=== PATIENT | female | born 2000 | race Caucasian/White ===

== ENCOUNTER 2023-10-13 16:22 | Inpatient (IN) | payer BC, SELFPAY ==
[2023-10-13] VITALS (38 sets, daily range): BP systolic 93–150; BP diastolic 61–101; PULSE 81–112; RESP 16–36; TEMP 36.4–36.6; O2SAT 87–100; BMI 35.3
[2023-10-13] MEDS: LACTATED RINGERS 500 ML 999 ML IV (16:40)
[2023-10-13] MEDS: Lactated Ringers 1,000 ML 50 ML IV (16:40)
[2023-10-13 17:01] LABS: Absolute Neutrophil Count 14.8 X10^3/uL (2.0-7.7); Basophil# 0.06 X10^3/uL; Basophil% 0.4 % (0-1); Eosinophil# 0.01 X10^3/uL; Eosinophils% 0.1 % (0-5); Hematocrit 36.3 % (37-47); Mean Corp Hgb Conc 30.3 g/dL (32-36); Mean Corpuscular Hgb 23.6 pg (27.0-32.0); Mean Corpuscular Volume 77.9 fL (81-99); Monocyte# 0.93 X10^3/uL; Monocyte% 5.4 % (0-10); NRBC Flagged by Analyzer 0 % (0-5); Neutrophil # 14.78 X10^3/uL (2.7-7.7); Neutrophil % 86.4 % (47-70); Platelet Count 355 K/mm3 (150-450); RBC Distribution Width CV 18.7 % (11.6-14.6); RBC Distribution Width SD 51.6 fl (35.1-43.9); Red Blood Count 4.66 M/mm3 (4.2-5.4); White Blood Count 17.1 K/mm3 (4.4-11.0)
[2023-10-13] MEDS: fentaNYL-bupivacaine (epidural) 100 ML BAG EPIDURAL (17:45)
[2023-10-13] MEDS: Amnioinfusion- 0.9% NS 1,000 ML IV.SOLN. 1000 ML INTRA-UTER (18:37)
--- NOTE | 2023-10-13 18:41 | PCM.HP.OB ---
HPI - General General Date of Admission: 10/13/23 HPI Narrative GORDO LARIOS, is a 23 F who presents c/o contractions - was found to be making cervical change. Pt was /-2 with painful contractions. PFSH PFSH Medical History no medical history Home Medications ?Medication ?Instructions ?Recorded ?Last Taken ?Type escitalopram oxalate 10 mg tablet 10 mg PO DAILY depression/anxiety 10/13/23 10/12/23 22:30 History (Lexapro) [id number] 1 mg 2 tab PO DAILY vitamins 10/13/23 10/13/23 00:00 History tablet Allergy/AdvReac Type Severity Reaction Status Date / Time ketamine Allergy Severe loss of Verified 10/13/23 15:44 consciousness Family History no significant family his Surgical History no surgical history Social History Smoking Status: Current every day smoker History Elective abortions Hx Para 0 Spontaneous abortions Hx # Term Pregnancies Ectopic pregnancies Hx # Pregnancies Multiple births # of living children NST FHR Rate Baby A Baseline: 130s Variability:: Moderate Accelerations:: 15 x 15 Decelerations:: Variable NST Reactive:: Yes FHR Category:: Category II Uterine Activity:: 2-5 Vital Signs Vital Signs Vital Signs: 10/13/23 13:48 10/13/23 13:48 10/13/23 13:48 Temperature Temperature Source Temporal Pulse Rate Respiratory Rate 36 H Blood Pressure BP Systolic BP Diastolic Pulse Ox 97 10/13/23 13:48 10/13/23 15:45 10/13/23 15:45 Temperature 97.6 F L Temperature Source Pulse Rate 109 H Respiratory Rate Blood Pressure 132/91 H BP Systolic 132 BP Diastolic 91 Pulse Ox 10/13/23 17:16 10/13/23 17:16 10/13/23 17:20 Temperature Temperature Source Pulse Rate 94 91 Respiratory Rate Blood Pressure BP Systolic BP Diastolic Pulse Ox 98 10/13/23 17:20 10/13/23 17:21 10/13/23 17:21 Temperature Temperature Source Pulse Rate 94 Respiratory Rate Blood Pressure BP Systolic BP Diastolic Pulse Ox 87 98 10/13/23 17:26 10/13/23 17:26 10/13/23 17:27 Temperature Temperature Source Pulse Rate 83 Respiratory Rate Blood Pressure 141/97 H BP Systolic 141 BP Diastolic 97 Pulse Ox 87 10/13/23 17:27 10/13/23 17:32 10/13/23 17:32 Temperature Temperature Source Pulse Rate 90 96 Respiratory Rate Blood Pressure 147/101 H BP Systolic 147 BP Diastolic 101 Pulse Ox 10/13/23 17:32 10/13/23 17:38 10/13/23 17:38 Temperature Temperature Source Pulse Rate 88 Respiratory Rate 22 H Blood Pressure 150/89 H BP Systolic 150 BP Diastolic 89 Pulse Ox 10/13/23 17:38 10/13/23 17:41 10/13/23 17:42 Temperature Temperature Source Pulse Rate Respiratory Rate 20 H 22 H Blood Pressure 141/83 H BP Systolic 141 BP Diastolic 83 Pulse Ox 10/13/23 17:42 10/13/23 17:47 10/13/23 17:47 Temperature Temperature Source Pulse Rate 98 96 Respiratory Rate Blood Pressure 142/94 H BP Systolic 142 BP Diastolic 94 Pulse Ox 10/13/23 17:47 10/13/23 17:47 10/13/23 17:48 Temperature Temperature Source Pulse Rate 91 Respiratory Rate Blood Pressure 140/93 H BP Systolic 140 BP Diastolic 93 Pulse Ox 100 10/13/23 17:48 10/13/23 17:48 10/13/23 17:52 Temperature Temperature Source Pulse Rate 94 90 Respiratory Rate 18 Blood Pressure BP Systolic BP Diastolic Pulse Ox 10/13/23 17:52 10/13/23 17:55 10/13/23 17:55 Temperature Temperature Source Pulse Rate 86 Respiratory Rate Blood Pressure 136/90 H BP Systolic 136 BP Diastolic 90 Pulse Ox 98 10/13/23 17:55 10/13/23 17:57 10/13/23 17:57 Temperature Temperature Source Pulse Rate 81 Respiratory Rate 16 Blood Pressure BP Systolic BP Diastolic Pulse Ox 100 10/13/23 18:02 10/13/23 18:02 10/13/23 18:02 Temperature Temperature Source Pulse Rate 86 Respiratory Rate Blood Pressure 133/75 H BP Systolic 133 BP Diastolic 75 Pulse Ox 100 10/13/23 18:07 10/13/23 18:07 10/13/23 18:07 Temperature Temperature Source Pulse Rate 95 Respiratory Rate Blood Pressure 138/87 H BP Systolic 138 BP Diastolic 87 Pulse Ox 99 10/13/23 18:19 10/13/23 18:19 10/13/23 18:20 Temperature Temperature Source Pulse Rate 99 91 Respiratory Rate Blood Pressure BP Systolic BP Diastolic Pulse Ox 100 10/13/23 18:20 10/13/23 18:24 10/13/23 18:24 Temperature Temperature Source Pulse Rate 100 Respiratory Rate Blood Pressure BP Systolic BP Diastolic Pulse Ox 92 100 10/13/23 18:29 10/13/23 18:29 10/13/23 18:34 Temperature Temperature Source Pulse Rate 96 100 Respiratory Rate Blood Pressure BP Systolic BP Diastolic Pulse Ox 100 10/13/23 18:34 10/13/23 18:39 10/13/23 18:39 Temperature Temperature Source Pulse Rate 112 H Respiratory Rate Blood Pressure BP Systolic BP Diastolic Pulse Ox 100 99 Weight Weight: 93.4 kg Body Mass Index (BMI) 35.3 Physical Exam Narrative /-2 IFM and IUPC placed- AROM was performed but scant fluid noted. Const alert and oriented x3 General Appearance: cooperative HEENT normocephalic GI GI Narrative: Gravid, non tender to palpation. OB / External & Speculum: external exam normal Extremity normal to inspection Skin no rashes or lesions noted Neuro oriented x3 and CN's II-XII intact bilaterally Psych Appearance: grossly normal Labs Labs Labs: Blood Type O POSITIVE Antibody Screen NEGATIVE Hct 36.3 % (37-47) L Hgb 11.0 g/dL (12.0-15.0) L Syphilis Total Ab Pending Assessment & Plan (1) with care elsewhere: (2) Depression with anxiety: (3) 39 weeks gestation of : (4) Echogenic focus of heart of fetus affecting antepartum care of mother: (5) Anemia affecting : (6) Borderline personality disorder: (7) History of drug use: PLAN: Plan Admit to L&D [facility] FHR/TOCO Epidural if requested for pain Monitor VS Anticipate IFM/IUPC- will start Amnioinfusion for variable decelerations
[2023-10-13] MEDS: Cefazolin 2 GM in 0.9% Normal Saline (100mL Bag) 100 ML IV (19:03)
--- NOTE | 2023-10-13 19:11 | PLAC_PTH ---
PATIENT: GORDO LARIOS LOC: [facility] U#:[id number] AGE/SX: 23/ ROOM: WP007 RE10/13/[address]: Dr. Paige Fowler, MDDOB: 2000 BED: 1 DIS: 10/16/2023 SPEC #: [id number] RECD: 10/13/23 21:08 STATUS: SANDY AUDREY #: [id number] SANDY: 10/13/23 19:[address]: Paige Fowler DEPT: SURGICAL PATHOLOGY RECD BY: Loly Patrick ENTERED: 10/14/23 10:10 SP TYPE: PLACENTA OTHR DR: No Primary Care Phys Tissues: Placenta, NOS Procedures: Surgery Specimen Level V HEADER OPERATION: section PRE-OP DIAGNOSIS: RICARDO TISSUE SUBMITTED: Placenta MICROSCOPIC DIAGNOSIS Placenta: Placental disc - third trimester placenta (540 gm). - Focal acute vasculitis of subamniotic blood vessels. - Focal increased calcifications. Membranes - Moderate acute chorioamnionitis. Umbilical cord - three blood vessels and mild acute funisitis. SJ: 10/17/2023 MICROSCOPIC DESCRIPTION Slides are reviewed. GROSS DESCRIPTION SPECIMEN: PLACENTA / CLINICAL INFORMATION: A. Weight: 3.54 kg B. Gestational Age: 39 weeks C. Sex: Male PLACENTAL WEIGHT (POST FIXATION): 540 gm PLACENTAL DIMENSIONS: 19.0 x 14.0 x 3.0 cm PLACENTAL SHAPE: Usual ovoid PLACENTAL WEIGHT FOR GESTATIONAL AGE: Within 10-99th percentile MEMBRANES - Present A. Insertion: Marginal B. Site of rupture from edge: at edge of placental disc C. Color of membrane: Yin-velasquez D. Abnormalities: None UMBILICAL CORD - Present A. Color: Yin-velasquez B. Insertion: Eccentric C. Length: 42.0 cm D. Diameter: 1.3 cm E. Number of vessels: Three F. Abnormalities: None PLACENTAL DISC - Present A. Color of surface: Yin-velasquez B. surface abnormalities: None C. Maternal cotyledons: Intact with minimal tears D. Attached retro placental clot: No clot E. Cut surface: Dark red and spongy F. Lesions: None G. Separate clot: Blood clot measures 9.5 x 3.0 x 2.0cm. SECTIONS SUBMITTED: 6 cassettes 1. Umbilical cord , end 2. Umbilical cord, placental end 3. Membrane roll 4. Placental disc, and maternal surfaces 5. Placental disc, and maternal surfaces 6. Placental disc, and maternal surfaces AM/mr 10/15/2023 TC:2 CPT: 24590
[2023-10-13] MEDS: Azithromycin 500 MG in Dextrose 5%-Water (250mL Bag) 250 ML 250 MG IV (19:21)
--- NOTE | 2023-10-13 19:45 | OP.PCM_ITS ---
Details Operative Information Date of Procedure: 10/13/23 Pre-Operative Diagnosis: 39 weeks, non reassuring status, cat 2 FHR Post-Operative Diagnosis: same, live male Indications Narrative: Prior to my arrival on unit patient had some audible variable decelerations and Nursing was requesting Internal monitors. AROM performed- scant clear fluid. IFM and IUPC were placed. After this there were multiple prolonged FHR decelerations to 60s-70s with good recovery to baseline, moderate variability. Pt was placed in different position, prior to calling RICARDO fetus had prolonged deceleration that did not recover into the 60-70s bpm at time patient was in the Operating room FHR was 90s-100. Pt was counseled on Primary cs at she was 6cm at this time and agreed to proceed with delivery by C/S. Classification: Stat Procedure Type: low transverse product analyst #1: Guillermo Sanchez Type of Anesthesia: Epidural Antibiotic Given: Ancef 2 grams IV x1 (will continue Q8hr x 24 hrs after c/s ) and Zithromax 500 mg/5 mL X1 Drain: Nance to straight drain Estimated Blood Loss: 600 Fluids Replaced: 1300 Procedure Start Time: 19:09 Procedure Stop Time: 19:50 Time of Delivery: 19:11 Findings Description of Procedure: After informed consent was obtained the patient was taken the operating room. She was then placed in the supine position. She was prepped with Betadine splash and draped in usual sterile fashion. Anesthesia was found to be adequate. At this time a Pfannenstiel skin incision was made with a knife was carried down to the underlying layer of the fascia. The fascial incision was then extended laterally using traction. Rectus muscles were then in the midline bluntly and peritoneum was entered bluntly. Gentle opposing traction was placed. At this time the vesicouterine peritoneum was identified. Scalpel was used to make a uterine incision in a low transverse fashion. The uterus was then entered bluntly gentle opposing traction was placed to extend this incision. Clear fluid noted but there was also amnioinfusion prior to delivery for the decelrations. Infant's head was brought to the uterine incision was delivered atraumatically. umbilical cord was noted between infant and uterine wall but no cord entanglement was noted. was vigorous at delivery. Cord was clamped and cut was handed to the waiting nursery team. The Placenta was removed from the uterus. The uterus was then removed from the abdominal cavity. The uterus was cleared of all clots and debris using a lap. At this time the uterine incision was reapproximated using #1 Vicryl in a running locked fashion. Hemostasis was appreciated. Posterior cul-de-sac was then cleared of all clots and debris. Uterus was placed back in the abdominal cavity. Gutters were cleared of all clots and debris. Uterine incision was reevaluated and noted to be of excellent hemostasis. At this time the peritoneum was grasped with Kellys reapproximated using #2 Vicryl suture in a running fashion. Fascia was then reapproximated using #1 Vicryl in a running fashion. Subcu layer was irrigated with NS, reapproximated with #2 0 plain gut suture in an interrupted fashion. Subcu layer was closed using 4-0 vicryl in a subcu fashion. Dry sterile dressing was applied. Instrument lap needle count correct ?2. Anticipated normal postoperative course. Presentation: Positive for Vertex Amniotic Membrane Rupture Type: Artificial Amniotic Fluid Description: Clear (scant ) Placental Delivery Description: Manual Removal Placenta Disposition: [facility] Specimen(s) Sent to Pathology: placenta Cord Vessel Description: 3 Vessels Cord Entanglement: None Cord Gases: ABG and VBG Infant A Gender: Male (1 minute): 8 (5 minute): 9 Delayed Cord Clamping: No Complications Risks of Surgery Discussed w/Patient: Bleeding, Anesthesia Risks, Infection and Injury to surrounding structure(s) including bowel and bladder Complications: none
[2023-10-13] MEDS: Oxytocin 15 Units/NS 250ml 15 UNITS/250 ML IV.SOLN 83 UNITS IV (20:32)
[2023-10-13] MEDS: Ketorolac 30 MG/ML Syringe IV (20:48)
[2023-10-13 21:06] LABS: Pathology Specimen OB SEE PATHOLOGY REPORT
[2023-10-13 22:28] LABS: Syphilis Antibodies Non-reactive
[2023-10-13] MEDS: Acetaminophen 500 MG Tablet 1000 MG PO (23:52)
[2023-10-13] MEDS: Escitalopram Oxalate 10 MG Tablet PO (23:52)
[2023-10-13] MEDS: Lactated Ringers 1,000 ML 100 ML IV (23:53)
[2023-10-14] VITALS (7 sets, daily range): BP systolic 98–131; BP diastolic 47–80; PULSE 80–103; RESP 14–18; TEMP 36.4–36.9; O2SAT 92–99
[2023-10-14] MEDS: Ketorolac 30 MG/ML Syringe IV ×3 (02:57→14:56)
[2023-10-14] MEDS: Cefazolin 1 GM/50 ML BAG IV ×2 (02:59→10:49)
[2023-10-14 05:00] LABS: Hematocrit 26.2 % (37-47); Hemoglobin 7.9 g/dL (12.0-15.0); Mean Corp Hgb Conc 30.2 g/dL (32-36); Mean Corpuscular Volume 79.6 fL (81-99); Mean Platelet Vol. 11.5 fl (6.2-12.0); Platelet Count 244 K/mm3 (150-450); RBC Distribution Width CV 18.7 % (11.6-14.6); RBC Distribution Width SD 53.5 fl (35.1-43.9); Red Blood Count 3.29 M/mm3 (4.2-5.4); White Blood Count 13.9 K/mm3 (4.4-11.0)
[2023-10-14 05:02] LABS: Scan Indicated on CBC? Y/N NO
[2023-10-14] MEDS: Acetaminophen 500 MG Tablet 1000 MG PO ×3 (06:09→18:51)
[2023-10-14] MEDS: Enoxaparin 40 MG/0.4 ML Syringe SC (08:11)
[2023-10-14] MEDS: Senna/Docusate Sodium 1 Tablet PO (10:48)
--- NOTE | 2023-10-14 12:17 | PN.OBGYN_ITS ---
Subjective Subjective Denies complaints Objective Data Objective Data Vital Signs: Vital Signs Temp Pulse Resp BP Pulse Ox O2 Del Method 98.5 F 80 14 98/47 L 97 Room Air 10/14/23 08:30 10/14/23 08:30 10/14/23 08:30 10/14/23 08:30 10/14/23 08:30 10/14/23 08:30 Oxygen Delivery Method Room Air Weight: 205 lb 14.588 oz Body Mass Index (BMI) 35.3 Intake & Output: Intake and Output for Last 24 Hours 10/12/23 10/13/23 10/14/23 23:59 23:59 23:59 Intake Total 1169.17 / 1169.17 1350 / 1350 Output Total 800 / 800 200 / 200 Balance 369.17 / 369.17 1150 / 1150 Lab / Micro Data 10/14/23 04:50 Labs: Laboratory Results - last 24 hr 10/13/23 16:40: WBC 17.1 H, RBC 4.66, Hgb 11.0 L, Hct 36.3 L, MCV 77.9 L, MCH 23.6 L, MCHC 30.3 L, RDW Std Deviation 51.6 H, RDW Coeff of Linda 18.7 H, Plt Count 355, MPV 12.0, Immature Gran % (Auto) 0.700, Neut % (Auto) 86.4 H, Lymph % (Auto) 7.0 L, [place] % (Auto) 5.4, Eos % (Auto) 0.1, Baso % (Auto) 0.4, Absolute Neuts (auto) 14.8 H, Absolute Lymphs (auto) 1.20, Nucleated RBC % 0, Syphilis Total Ab Non-reactive, Blood Type O POSITIVE, Antibody Screen NEGATIVE 10/14/23 04:50: WBC 13.9 H, RBC 3.29 L, Hgb 7.9 L, Hct 26.2 L, MCV 79.6 L, MCH 24.0 L, MCHC 30.2 L, RDW Std Deviation 53.5 H, RDW Coeff of Linda 18.7 H, Plt Count 244, MPV 11.5 Physical Exam Const alert, oriented x3 and no apparent distress HEENT normocephalic GI soft to palpation, non-tender and non-distended GI Narrative: fundus firm, mid & below umbilicus Incision - bandage c/d/i Extremity normal to inspection and no calf tenderness Assessment & Plan (1) Anemia affecting : QUALIFIERS: Trimester: third trimester Qualified Code(s): O99.013 - Anemia complicating , third trimester COMMENT: POD#1 (2) Delivery by section: PLAN: Heme - HDS. CBC reviewed. Continue iron for anemia. ID - AF, no signs infection GI/ - no issues Routine care
[2023-10-14] MEDS: 0.9% Saline Lock 10 ML Syringe IV (14:57)
[2023-10-14] MEDS: Ibuprofen 600 MG Tablet PO (20:58)
[2023-10-15] MEDS: oxyCODONE 5 MG Tablet PO (00:23)
[2023-10-15] MEDS: Acetaminophen 500 MG Tablet 1000 MG PO ×4 (01:04→19:52)
[2023-10-15 01:06] VITALS: BP 118/66; PULSE 98; RESP 16; TEMP 36.8; O2SAT 97
[2023-10-15] MEDS: Ibuprofen 600 MG Tablet PO ×4 (03:01→19:52)
[2023-10-15 05:19] LABS: Absolute Lymphocyte Count 1.72 X10^3/uL (0.83-4.51); Absolute Neutrophil Count 8.6 X10^3/uL (2.0-7.7); Basophil# 0.09 X10^3/uL; Basophil% 0.8 % (0-1); Eosinophil# 0.11 X10^3/uL; Hematocrit 24.4 % (37-47); Hemoglobin 7.3 g/dL (12.0-15.0); Lymphocyte # 1.72 X10^3/ul (0.83-4.51); Lymphocyte % 15.2 % (19-41); Mean Corp Hgb Conc 29.9 g/dL (32-36); Mean Corpuscular Hgb 24.2 pg (27.0-32.0); Mean Corpuscular Volume 80.8 fL (81-99); Mean Platelet Vol. 11.8 fl (6.2-12.0); Monocyte# 0.77 X10^3/uL; Monocyte% 6.8 % (0-10); NRBC Flagged by Analyzer 0.2 % (0-5); Neutrophil # 8.56 X10^3/uL (2.7-7.7); Neutrophil % 75.3 % (47-70); Platelet Count 229 K/mm3 (150-450); RBC Distribution Width CV 19.2 % (11.6-14.6); RBC Distribution Width SD 55.8 fl (35.1-43.9); Red Blood Count 3.02 M/mm3 (4.2-5.4); White Blood Count 11.4 K/mm3 (4.4-11.0)
[2023-10-15 07:53] VITALS: BP 99/57; PULSE 94; RESP 18; TEMP 36.5; O2SAT 97
[2023-10-15] MEDS: Iron Sucrose Complex 200 MG in 0.9% Normal Saline (100mL Bag) 100 ML 220 MG IV (08:19)
[2023-10-15] MEDS: 0.9% Saline Lock 10 ML Syringe IV ×2 (08:20→09:08)
[2023-10-15] MEDS: Enoxaparin 40 MG/0.4 ML Syringe SC (08:26)
--- NOTE | 2023-10-15 08:54 | PN.OBGYN_ITS ---
Subjective Subjective Patient seen at bedside. Resting quietly. Denies current headache, vision changes, SOB, or CP. Has ambulated to bathroom and voiding. Passing some flatus. with support. Objective Data Objective Data Vital Signs: Vital Signs Temp Pulse Resp BP Pulse Ox O2 Del Method 97.7 F L 94 18 99/57 L 97 Room Air 10/15/23 07:53 10/15/23 07:53 10/15/23 07:53 10/15/23 07:53 10/15/23 07:53 10/15/23 07:53 Oxygen Delivery Method Room Air Weight: 205 lb 14.588 oz Body Mass Index (BMI) 35.3 Intake & Output: Intake and Output for Last 24 Hours 10/13/23 10/14/23 10/15/23 23:59 23:59 23:59 Intake Total 1169.17 / 1169.17 1350 / 1350 Output Total 800 / 800 400 / 400 Balance 369.17 / 369.17 950 / 950 Lab / Micro Data 10/15/23 05:05 Labs: Laboratory Results - last 24 hr 10/15/23 05:05: WBC 11.4 H, RBC 3.02 L, Hgb 7.3 L, Hct 24.4 L, MCV 80.8 L, MCH 24.2 L, MCHC 29.9 L, RDW Std Deviation 55.8 H, RDW Coeff of Linda 19.2 H, Plt Count 229, MPV 11.8, Immature Gran % (Auto) 0.900, Neut % (Auto) 75.3 H, Lymph % (Auto) 15.2 L, [place] % (Auto) 6.8, Eos % (Auto) 1.0, Baso % (Auto) 0.8, Absolute Neuts (auto) 8.6 H, Absolute Lymphs (auto) 1.72, Nucleated RBC % 0.2 ROS Eyes Eyes: Denies blurry vision, change in vision or spots in vision ENT HEENT: Denies dizziness or headache(s) Cardiovascular Cardiovascular: Denies abdominal pain, chest pain or dyspnea Respiratory/Chest Respiratory/Chest: Denies cough, dyspnea, shortness of breath at rest or shortness of breath with exertion Gastrointestinal Gastrointestinal: Denies abdominal pain, diarrhea or vomiting Genitourinary Genitourinary: Denies change in urinary stream, difficulty urinating or dysuria Musculoskeletal Musculoskeletal: Reports none Integumentary Integumentary: Denies rash Neurologic Neurologic: Denies dizziness, headache(s), memory loss or weakness Physical Exam Narrative Dressing is dry and intact Const alert and no apparent distress General Appearance: cooperative and comfortable Exam Limitations: no limitations HEENT normocephalic Eyes General Eye: normal appearance of both eyes Neck full ROM General: normal visual inspection Chest Chest: symmetrical chest wall rise Resp normal respiratory effort and normal air movement Effort and Inspection: symmetric chest movement Auscultation: clear to auscultation bilaterally Cardio regular rate and regular rhythm GI normal to inspection, nondistended, normoactive bowel sounds Back/Spine normal ROM Extremity full ROM and no calf tenderness General Extremity: normal exam except as noted Skin no rashes or lesions noted Neuro CN's II-XII intact bilaterally Psych mental status grossly normal Assessment & Plan (1) Delivery by section: (2) History of drug use: (3) Borderline personality disorder: (4) Anemia affecting : QUALIFIERS: Trimester: third trimester Qualified Code(s): O99.013 - Anemia complicating , third trimester COMMENT: POD#1 (5) Depression with anxiety: (6) with care elsewhere: (7) Care and examination of lactating mother: PLAN: Plan HGB. 7.3- patient is asymptomatic IV Venofer x 1 dose now Repeat CBC in AM Pain control support Anticipate discharge home tomorrow
[2023-10-15] MEDS: Senna/Docusate Sodium 1 Tablet PO (09:41)
[2023-10-15 14:30] VITALS: BP 128/79; PULSE 108; RESP 16; TEMP 36.9; O2SAT 97
[2023-10-15] MEDS: Ferrous Sulfate 325 MG Tablet PO (14:34)
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
[2023-10-15 19:54] VITALS: BP 123/77; PULSE 95; RESP 16; TEMP 36.9; O2SAT 97
[2023-10-15] MEDS: Escitalopram Oxalate 10 MG Tablet PO (21:38)
[2023-10-16 01:25] VITALS: BP 125/88; PULSE 89; RESP 16; TEMP 36.9; O2SAT 98
[2023-10-16] MEDS: Acetaminophen 500 MG Tablet 1000 MG PO ×2 (01:58→08:54)
[2023-10-16] MEDS: Ibuprofen 600 MG Tablet PO ×2 (01:58→08:54)
[2023-10-16 06:20] LABS: Hematocrit 24.2 % (37-47); Hemoglobin 7.2 g/dL (12.0-15.0); Mean Corp Hgb Conc 29.8 g/dL (32-36); Mean Corpuscular Hgb 24.2 pg (27.0-32.0); Mean Corpuscular Volume 81.5 fL (81-99); Mean Platelet Vol. 11.4 fl (6.2-12.0); Platelet Count 267 K/mm3 (150-450); RBC Distribution Width CV 19.4 % (11.6-14.6); RBC Distribution Width SD 56.2 fl (35.1-43.9); Red Blood Count 2.97 M/mm3 (4.2-5.4); White Blood Count 10.6 K/mm3 (4.4-11.0)
--- NOTE | 2023-10-16 07:38 | PCM.DC.SUM ---
Providers Date of Admission: 10/13/23 Primary Care Physician: No Primary Care Phys Reason For Visit: C SECTION Diagnosis Discharge Diagnosis (1) Delivery by section: Status: Acute (2) History of drug use: Status: Acute Code(s): F19.91 - Other psychoactive substance use, unspecified, in remission (3) Borderline personality disorder: Status: Acute Code(s): F60.3 - Borderline personality disorder (4) Anemia affecting : Status: Acute Code(s): O99.019 - Anemia complicating , unspecified trimester Qualifiers: Trimester: third trimester Qualified Code(s): O99.013 - Anemia complicating , third trimester (5) Depression with anxiety: Status: Acute Code(s): F41.8 - Other specified anxiety disorders (6) with care elsewhere: Status: Acute Code(s): Z34.90 - Encounter for supervision of normal , unspecified, unspecified trimester (7) Care and examination of lactating mother: Status: Acute Code(s): Z39.1 - Encounter for care and examination of lactating mother Medications at Discharge Home Medications escitalopram oxalate 10 mg tablet (Lexapro) 10 mg PO DAILY depression/anxiety 10/13/23 [id number] 1 mg tablet 2 tab PO DAILY vitamins 10/13/23 acetaminophen 500 mg tablet 1,000 mg (2 x 500 mg) PO Q6H #0 tabs 10/16/23 ferrous sulfate 325 mg (65 mg iron) tablet (FeroSul) 325 mg PO DAILY@1200 #0 tabs 10/16/23 ibuprofen 600 mg tablet 600 mg PO Q6H #0 tabs 10/16/23 sennosides 8.6 mg-docusate sodium 50 mg tablet (Stool Softener-Stimulant Laxative) 1 - 2 tab PO DAILY #0 tabs 10/16/23 Hospital Course Operations section Procedures None Summary of Care Provided Minutes Spent on Discharge: 15 Hospital Course: Patient had primary section. Hospital course was uneventful. Physical Exam Narrative Dressing is dry and intact. Patient seen at bedside. Denies headache, dizziness, vision changes, SOB, or CP. Ambulating and voiding without difficulty. Desires discharge home today. Const alert and no apparent distress General Appearance: cooperative and comfortable Exam Limitations: no limitations HEENT normocephalic Eyes General Eye: normal appearance of both eyes Neck full ROM General: normal visual inspection Chest Chest: symmetrical chest wall rise Resp normal respiratory effort and normal air movement Effort and Inspection: symmetric chest movement Auscultation: clear to auscultation bilaterally Cardio regular rate and regular rhythm GI normal to inspection, nondistended, normoactive bowel sounds Back/Spine normal ROM Extremity full ROM and no calf tenderness General Extremity: normal exam except as noted Skin no rashes or lesions noted Neuro CN's II-XII intact bilaterally Psych mental status grossly normal Weight / BMI Weight Weight: 205 lb 14.588 oz Body Mass Index (BMI) 35.3 ABG / Lab / Microbiology Data 10/16/23 04:53 Laboratory: Laboratory Results - last 24 hr 10/16/23 04:53: WBC 10.6, RBC 2.97 L, Hgb 7.2 L, Hct 24.2 L, MCV 81.5, MCH 24.2 L, MCHC 29.8 L, RDW Std Deviation 56.2 H, RDW Coeff of Linda 19.4 H, Plt Count 267, MPV 11.4 D/C Instructions Discharge Diet: No restrictions Discharge Activity: May Drive (2 weeks) and May Shower May resume sexual activity in: 6-8 weeks Weight Bearing Status: Weight bearing as tolerated Call your doctor if your incision/area has: Continuous Slow Oozing, Sudden Increased Bleeding, Increased Pain/ Swelling, Increased Redness, Foul Smelling Discharge and Swelling at the incision site Call your doctor if you observe: Fever of 101 or Higher, Numbness or Tingling, Using more than 1 pad per hour, Shortness of breath, Dizziness, Swelling in the ankles, Chest pain, Calf discomfort and Uncontrolled pain Suture Line Care: Avoid Pulling/Pushing Remove Dressing in: 5 days When: 1 week for incision check Meaningful Use Info Meaningful Use Meaningful Use Diagnoses (Choose all that apply): None applicable Ischemic Stroke Statin Dosing Therapy Reference: STATIN DOSE THERAPY REFERENCE: * Patients > 75 years receive moderate or high dose statin therapy. * Patients 75 years or YOUNGER should receive HIGH intensity statin dose unless contraindicated. You will be required to document reason for non-treatment if statin daily dose does not meet guidelines. HIGH DOSE STATIN THERAPY DAILY Atorvastatin > than or = to 40 mg Rosuvastatin > than or = to 20 mg Amlodipine + Atorvastatin > than or = to 2.5/40 mg Ezetimibe + Simvastatin 10/80 mg Simvastatin 80mg Discharge Plan Admission Admit Date/Time: 10/13/23 16:22 Primary Reason for Your Visit: Labor and Delivery Attending Provider: Paige Fowler Primary Care Provider: Mounika Farfan,Carmen Primary Discharge Orders/Prescriptions Prescriptions: New sennosides-docusate sodium [Stool Softener-Stimulant Laxat] 8.6-50 mg Tablet 1 - 2 tab PO DAILY Qty: 0 0RF acetaminophen 500 mg Tablet 1,000 mg PO Q6H Qty: 0 0RF ferrous sulfate [FeroSul] 325 mg (65 mg iron) Tablet 325 mg PO DAILY@1200 Qty: 0 0RF ibuprofen 600 mg Tablet 600 mg PO Q6H Qty: 0 0RF Continued escitalopram oxalate [Lexapro] 10 mg tablet 10 mg PO DAILY No Action [id number] 1 mg tablet 2 tab PO DAILY Referrals / Follow Up: Care Physician,No Primary [Primary Care Provider] - Disposition Disposition (needs filled in before D/C Order can be placed): Home, Self Care
[2023-10-16] MEDS: Enoxaparin 40 MG/0.4 ML Syringe SC (08:53)
[2023-10-16] MEDS: Senna/Docusate Sodium 1 Tablet PO (08:54)
[2023-10-16 09:12] VITALS: BP 124/86; PULSE 90; RESP 14; TEMP 36.4; O2SAT 98
[2023-10-16] MEDS: Ferrous Sulfate 325 MG Tablet PO (10:53)
--- NOTE | 2023-10-20 12:36 | NURSING ---
Follow up phone call performed, no answer, left voicemail with number if patient has questions or concerns.
== END 2023-10-16 11:00 | disposition home or self-care (01) | DRG 788 ==
LOC: WPOUT 16:26 → WP 16:26
PROVIDERS: Advanced Practice Midwife; Obstetrics & Gynecology; Admitting Provider Obstetrics & Gynecology; Referring Provider Obstetrics & Gynecology; Visit Provider Obstetrics & Gynecology
DX: O76 Abnormality in fetal heart rate and rhythm complicating labor and delivery (principal); D64.9 Anemia, unspecified; F60.3 Borderline personality disorder; F32.A Depression, unspecified; F17.200 Nicotine dependence, unspecified, uncomplicated; F41.9 Anxiety disorder, unspecified; O99.02 Anemia complicating childbirth; O99.334 Smoking (tobacco) complicating childbirth; O99.344 Other mental disorders complicating childbirth; Z37.0 Single live birth; Z3A.39 39 weeks gestation of pregnancy; Z79.899 Other long term (current) drug therapy
CPT/HCPCS: 59025; 59050; 85025; 85027; 86780; 86850; 86900; 86901; 88307; 99221; J1756; J7030; J7120; A4216; G0378; J2405

== ENCOUNTER → 2024-08-16 | Outpatient (CLI) | payer MEDICAID, SELFPAY ==
[2024-08-16 12:32] LABS: Absolute Lymphocyte Count 2.47 X10^3/uL (0.83-4.51); Absolute Neutrophil Count 4.5 X10^3/uL (2.0-7.7); Basophil# 0.11 X10^3/uL; Basophil% 1.4 % (0-1); Eosinophil# 0.13 X10^3/uL; Eosinophils% 1.7 % (0-5); Hematocrit 42.6 % (37-47); Hemoglobin 13.9 g/dL (12.0-15.0); Lymphocyte # 2.47 X10^3/ul (0.83-4.51); Lymphocyte % 31.5 % (19-41); Mean Corp Hgb Conc 32.6 g/dL (32-36); Mean Corpuscular Hgb 28.1 pg (27.0-32.0); Mean Corpuscular Volume 86.1 fL (81-99); Mean Platelet Vol. 10.8 fl (6.2-12.0); Monocyte# 0.58 X10^3/uL; Monocyte% 7.4 % (0-10); NRBC Flagged by Analyzer 0 % (0-5); Neutrophil # 4.51 X10^3/uL (2.7-7.7); Neutrophil % 57.6 % (47-70); Platelet Count 398 K/mm3 (150-450); RBC Distribution Width CV 13.2 % (11.6-14.6); RBC Distribution Width SD 41.1 fl (35.1-43.9); Red Blood Count 4.95 M/mm3 (4.2-5.4); White Blood Count 7.8 K/mm3 (4.4-11.0)
[2024-08-16 14:40] LABS: ALB/GLOB Ratio 1.4 RATIO (0.9-2.4); AST(SGOT) 24 U/L (<=31); Alanine Aminotransfer ALT/SGPT 19 U/L (<=34); Albumin, Serum 4.4 g/dL (3.5-5.0); Alkaline Phosphatase 119 U/L (35-104); Anion Gap 15 (5-15); BUN 14 mg/dL (4-19); BUN/Creat Ratio 15.4 RATIO (10-20); Calcium,Total 9.9 mg/dL (7.6-11.0); Carbon Dioxide 23.8 mmol/L (21.0-32.0); Chloride 100 mmol/L (98-108); Cholesterol 205 mg/dL (<=190); Creatinine, Serum 0.93 mg/dL (0.70-1.20); EST Glomerular Filtration Rate 90 (>60); Globulin 3.2 g/dL (2.2-4.2); Glucose 93 mg/dL (70-99); High Density Lipoprotein 60 mg/dL; Low Density Lipoprotein Calc. 121 mg/dL; Potassium 3.6 mmol/L (3.3-5.1); Protein, Total 7.6 g/dL (5.9-8.4); Sodium Level 139 mmol/L (133-145); Total Bilirubin 0.49 mg/dL (0.00-1.30); Triglycerides 124 mg/dL; Very Low Density Lipoprotein 25 mg/dL (5-40); Vitamin D,25 Hydroxy 23.9 ng/mL (30-100); cholesterol:hdl ratio screen 3.44
== END | disposition home or self-care (01) ==
LOC: BIMLAB 09:56
PROVIDERS: PCP Internal Medicine; Referring Provider Internal Medicine; Visit Provider Internal Medicine
DX: Z00.00 Encounter for general adult medical examination without abnormal findings (principal); F32.A Depression, unspecified; F41.9 Anxiety disorder, unspecified
CPT/HCPCS: 36415; 80053; 80061; 82306; 84439; 84443; 85025

== ENCOUNTER → 2025-03-18 | Outpatient (CLI) | payer BC, MEDICAID, SELFPAY ==
[2025-03-18 15:00] LABS: Hematocrit 42.3 % (37-47); Hemoglobin 14.0 g/dL (12.0-15.0); Immature Granulocytes Count 0.060 X10^3/uL (0.0-0.0); Mean Corp Hgb Conc 33.1 g/dL (32-36); Mean Corpuscular Volume 86.5 fL (81-99); Mean Platelet Vol. 10.2 fl (6.2-12.0); NRBC Flagged by Analyzer 0 % (0-5); Platelet Count 461 K/mm3 (150-450); RBC Distribution Width CV 12.3 % (11.6-14.6); RBC Distribution Width SD 38.9 fl (35.1-43.9); Red Blood Count 4.89 M/mm3 (4.2-5.4); White Blood Count 9.7 K/mm3 (4.4-11.0)
[2025-03-18 15:22] LABS: AST(SGOT) 25 U/L (<=31); Alanine Aminotransfer ALT/SGPT 25 U/L (<=34); Albumin, Serum 4.3 g/dL (3.5-5.0); Alkaline Phosphatase 113 U/L (35-104); Anion Gap 11 (5-15); BUN 11 mg/dL (4-19); BUN/Creat Ratio 12.4 RATIO (10-20); Calcium,Total 9.8 mg/dL (7.6-11.0); Carbon Dioxide 29.5 mmol/L (21.0-32.0); Chloride 101 mmol/L (98-108); Globulin 3.2 g/dL (2.2-4.2); Glucose 114 mg/dL (70-99); Potassium 3.8 mmol/L (3.3-5.1)
[2025-03-18 16:19] LABS: Ferritin 53 ng/mL (22-378); Iron 65 ug/dL (50-170); Iron Binding Capacity,Total 326 ug/dL (250-450); Iron Binding Capacity,Unsat 261 ug/dL (228-428)
[2025-03-18 18:31] LABS: Vitamin B12 722 pg/mL (180-914); Vitamin D,25 Hydroxy 28.4 ng/mL (30-100)
== END | disposition home or self-care (01) ==
LOC: MTLAB 13:10
PROVIDERS: PCP Internal Medicine; Referring Provider Internal Medicine; Visit Provider Internal Medicine
DX: Z13.0 Encounter for screening for diseases of the blood and blood-forming organs and certain disorders involving the immune mechanism (principal); E55.9 Vitamin D deficiency, unspecified; F32.A Depression, unspecified; F41.9 Anxiety disorder, unspecified
CPT/HCPCS: 36415; 80053; 82306; 82607; 82728; 83540; 83550; 84439; 84443; 85025